=== PATIENT | female | born 1990 | race Caucasian/White ===

== ENCOUNTER → 2024-01-22 06:54 | Outpatient (REF) | payer BC, SELFPAY | LOC: PNTC 06:54 | PROVIDERS: ATTENDING PHYSICIAN Obstetrics & Gynecology | DX: E28.2 Polycystic ovarian syndrome (principal); O99.212 Obesity complicating pregnancy, second trimester; Z36.0 Encounter for antenatal screening for chromosomal anomalies; Z36.82 Encounter for antenatal screening for nuchal translucency; Z34.90 Encounter for supervision of normal pregnancy, unspecified, unspecified trimester | CPT/HCPCS: 36415; 76801; 76813 ==

== ENCOUNTER → 2024-02-20 14:10 | Outpatient (REF) | payer BC, SELFPAY | LOC: PNTC 14:10 | PROVIDERS: ATTENDING PHYSICIAN Obstetrics & Gynecology | DX: O99.212 Obesity complicating pregnancy, second trimester (principal); Z36.86 Encounter for antenatal screening for cervical length; O09.212 Supervision of pregnancy with history of pre-term labor, second trimester; E28.2 Polycystic ovarian syndrome; O42.913 Preterm premature rupture of membranes, unspecified as to length of time between rupture and onset of labor, third trimester | CPT/HCPCS: 76805; 76817 ==

== ENCOUNTER → 2024-03-12 13:20 | Outpatient (REF) | payer BC, SELFPAY | LOC: PNTC 13:20 | PROVIDERS: ATTENDING PHYSICIAN Obstetrics & Gynecology | DX: O09.519 Supervision of elderly primigravida, unspecified trimester (principal); O34.80 Maternal care for other abnormalities of pelvic organs, unspecified trimester; O99.210 Obesity complicating pregnancy, unspecified trimester | CPT/HCPCS: 76811; 76817 ==

== ENCOUNTER → 2024-03-26 14:55 | Outpatient (REF) | payer BC, SELFPAY | LOC: PNTC 14:55 | PROVIDERS: ATTENDING PHYSICIAN Obstetrics & Gynecology | DX: O44.03 Complete placenta previa NOS or without hemorrhage, third trimester (principal); O99.210 Obesity complicating pregnancy, unspecified trimester; O42.90 Premature rupture of membranes, unspecified as to length of time between rupture and onset of labor, unspecified weeks of gestation | CPT/HCPCS: 76815; 76817 ==

== ENCOUNTER → 2024-04-08 14:27 | Outpatient (REF) | payer BC, SELFPAY | LOC: PNTC 14:27 | PROVIDERS: ATTENDING PHYSICIAN Obstetrics & Gynecology | DX: O42.90 Premature rupture of membranes, unspecified as to length of time between rupture and onset of labor, unspecified weeks of gestation (principal); O44.03 Complete placenta previa NOS or without hemorrhage, third trimester; O99.210 Obesity complicating pregnancy, unspecified trimester | CPT/HCPCS: 76816; 76817 ==

== ENCOUNTER → 2024-04-24 16:37 | Outpatient (REF) | payer BC, SELFPAY ==
--- NOTE | 2024-04-24 16:48 | PN.DIAED06 ---
Meal Plan - Gestational
- Breakfast
Gestational Diabetes Meal Plan Name: 1800 calories
Breakfast - Total Carbohydrate (grams): 30
Breakfast - Starch Carbohydrate: 1
Breakfast - Fruit Carbohydrate: 0
Breakfast - Milk Carbohydrate: 1
Breakfast - Nonstarchy Vegetables: Yes
Breakfast - Meat/Protein: 1
Breakfast - Fat: 2
- Morning Snack
Morning Snack - Total Carbohydrate (grams): 30
Morning Snack - Starch Carbohydrate: 1
Morning Snack - Fruit Carbohydrate: 0
Morning Snack - Milk Carbohydrate: 1
Morning Snack - Nonstarchy Vegetables: Yes
Morning Snack - Meat/Protein: 0.5
Morning Snack - Fat: 0
- Lunch
Lunch - Total Carbohydrate (grams): 45
Lunch - Starch Carbohydrate: 2
Lunch - Fruit Carbohydrate: 1
Lunch - Milk Carbohydrate: 0
Lunch - Nonstarchy Vegetables: Yes
Lunch - Meat/Protein: 2
Lunch - Fat: 1
- Afternoon Snack
Afternoon Snack - Total Carbohydrate (grams): 30
Afternoon Snack - Starch Carbohydrate: 1
Afternoon Snack - Fruit Carbohydrate: 1
Afternoon Snack - Milk Carbohydrate: 0
Afternoon Snack - Nonstarchy Vegetables: Yes
Afternoon Snack - Meat/Protein: 1
Afternoon Snack - Fat: 0
- Dinner
Dinner - Total Carbohydrate (grams): 45
Dinner - Starch Carbohydrate: 2
Dinner - Fruit Carbohydrate: 0
Dinner - Milk Carbohydrate: 1
Dinner - Nonstarchy Vegetables: Yes
Dinner - Meat/Protein: 2
Dinner - Fat: 2
- Evening Snack
Evening Snack - Total Carbohydrate (grams): 30
Evening Snack - Starch Carbohydrate: 1
Evening Snack - Fruit Carbohydrate: 0
Evening Snack - Milk Carbohydrate: 1
Evening Snack - Nonstarchy Vegetables: Yes
Evening Snack - Meat/Protein: 1
Evening Snack - Fat: 1
--- NOTE | 2024-04-24 18:21 | PN.DE ---
Diabetes Education
- -
Met with Ms. Charlton today, , currently at 26 weeks of gestation, here today for medical nutrition therapy.
Explained glucose metabolism in body and what occurs during to cause increase blood sugar. Discussed importance of keeping BS well controlled to avoid complications to the baby during and after (macrosomia, hypoglycemia). Explained
to Emilie that she is at increased risk of developing T2DM in the future.
Provided Emilie with a Contour Next EZ glucometer, instructions with good return demonstration, result 90 mg/dl 2 hrs after lunch.
Reviewed proper testing technique, testing sites and testing pattern. She is aware to test FBS and 2 hr pp each meal. Expected results for FBS <95 mg/dl and 2 hr pp <120 mg/dl.
Explained high carbohydrate diet and macronutrients and the effect each has on blood sugar. Provided with 1800 maciej GDM meal plan. She was educated on how to read a nutritional fact label and look at total CHO in relation to serving size. No fruit or
fruit juice until noontime. Provided with handout on snacks as well as 'Choose Your Foods' booklet. A Log sheet was provided for her to record results, she will send her 4 day meal log with all her FBG and 2hr Post prandial glucose numbers to this
office for review. In addition, she will send all her glucose readings to [facility] at [facility] every Monday. She was encouraged to keep a regular activity schedule and will reach out should she require insulin
== END ==
LOC: DES 16:37
PROVIDERS: ATTENDING PHYSICIAN Obstetrics & Gynecology; FAMILY PHYSICIAN Family Medicine
DX: O24.419 Gestational diabetes mellitus in pregnancy, unspecified control (principal)
CPT/HCPCS: 99078

== ENCOUNTER → 2024-04-29 07:07 | Outpatient (REF) | payer BC, SELFPAY | LOC: PNTC 07:07 | PROVIDERS: ATTENDING PHYSICIAN Obstetrics & Gynecology | DX: O24.419 Gestational diabetes mellitus in pregnancy, unspecified control (principal) | CPT/HCPCS: 76815 ==

== ENCOUNTER → 2024-05-07 07:00 | Outpatient (REF) | payer BC, SELFPAY | LOC: PNTC 07:00 | PROVIDERS: ATTENDING PHYSICIAN Obstetrics & Gynecology | DX: O42.013 Preterm premature rupture of membranes, onset of labor within 24 hours of rupture, third trimester (principal); O24.410 Gestational diabetes mellitus in pregnancy, diet controlled; O99.213 Obesity complicating pregnancy, third trimester; Z87.51 Personal history of pre-term labor | CPT/HCPCS: 76816 ==

== ENCOUNTER 2024-05-08 16:50 | Observation (INO) | payer BC, SELFPAY ==
[2024-05-08 16:54] VITALS: BMI 41.6
[2024-05-08 16:56] VITALS: BP 124/75
== END 2024-05-08 17:35 | disposition home or self-care (01) ==
LOC: LDRP 16:50
PROVIDERS: ADMITTING PHYSICIAN Obstetrics & Gynecology; FAMILY PHYSICIAN Internal Medicine
DX: O36.8130 Decreased fetal movements, third trimester, not applicable or unspecified (principal); Z3A.28 28 weeks gestation of pregnancy; O24.410 Gestational diabetes mellitus in pregnancy, diet controlled; O99.283 Endocrine, nutritional and metabolic diseases complicating pregnancy, third trimester; E28.2 Polycystic ovarian syndrome; F90.9 Attention-deficit hyperactivity disorder, unspecified type; G43.909 Migraine, unspecified, not intractable, without status migrainosus; O99.213 Obesity complicating pregnancy, third trimester
CPT/HCPCS: 59025; G0378

== ENCOUNTER → 2024-06-04 06:56 | Outpatient (REF) | payer BC, SELFPAY | LOC: PNTC 06:56 | PROVIDERS: ATTENDING PHYSICIAN Obstetrics & Gynecology | DX: O24.414 Gestational diabetes mellitus in pregnancy, insulin controlled (principal); O99.213 Obesity complicating pregnancy, third trimester; E28.2 Polycystic ovarian syndrome; Z87.59 Personal history of other complications of pregnancy, childbirth and the puerperium; Z87.51 Personal history of pre-term labor | CPT/HCPCS: 59025; 76816 ==

== ENCOUNTER → 2024-06-10 06:59 | Outpatient (REF) | payer BC, SELFPAY | LOC: PNTC 06:59 | PROVIDERS: ATTENDING PHYSICIAN Obstetrics & Gynecology | DX: O24.414 Gestational diabetes mellitus in pregnancy, insulin controlled (principal); O99.213 Obesity complicating pregnancy, third trimester; E28.2 Polycystic ovarian syndrome; Z87.59 Personal history of other complications of pregnancy, childbirth and the puerperium; Z87.51 Personal history of pre-term labor | CPT/HCPCS: 59025; 76815 ==

== ENCOUNTER → 2024-06-17 16:41 | Outpatient (REF) | payer BC, SELFPAY | LOC: PNTC 16:41 | PROVIDERS: ATTENDING PHYSICIAN Obstetrics & Gynecology | DX: O42.90 Premature rupture of membranes, unspecified as to length of time between rupture and onset of labor, unspecified weeks of gestation (principal); O99.210 Obesity complicating pregnancy, unspecified trimester; O24.419 Gestational diabetes mellitus in pregnancy, unspecified control; O34.80 Maternal care for other abnormalities of pelvic organs, unspecified trimester | CPT/HCPCS: 59025; 76815 ==

== ENCOUNTER → 2024-06-24 16:38 | Outpatient (REF) | payer BC, SELFPAY | LOC: PNTC 16:38 | PROVIDERS: ATTENDING PHYSICIAN Obstetrics & Gynecology | DX: O42.90 Premature rupture of membranes, unspecified as to length of time between rupture and onset of labor, unspecified weeks of gestation (principal); O99.210 Obesity complicating pregnancy, unspecified trimester; O44.03 Complete placenta previa NOS or without hemorrhage, third trimester | CPT/HCPCS: 59025; 76815 ==

== ENCOUNTER 2024-06-28 18:42 | Observation (INO) | payer BC, SELFPAY ==
[2024-06-28 18:53] VITALS: BP 136/73; BMI 41.3
== END 2024-06-28 19:19 | disposition home or self-care (01) ==
LOC: LDRP 18:42
PROVIDERS: ADMITTING PHYSICIAN Obstetrics & Gynecology
DX: O36.8130 Decreased fetal movements, third trimester, not applicable or unspecified (principal); Z3A.36 36 weeks gestation of pregnancy; O24.410 Gestational diabetes mellitus in pregnancy, diet controlled; O99.283 Endocrine, nutritional and metabolic diseases complicating pregnancy, third trimester; E28.2 Polycystic ovarian syndrome; O99.213 Obesity complicating pregnancy, third trimester
CPT/HCPCS: 59025; G0378

== ENCOUNTER → 2024-07-01 16:46 | Outpatient (REF) | payer BC, SELFPAY | LOC: PNTC 16:46 | PROVIDERS: ATTENDING PHYSICIAN Obstetrics & Gynecology | DX: O42.90 Premature rupture of membranes, unspecified as to length of time between rupture and onset of labor, unspecified weeks of gestation (principal); O99.210 Obesity complicating pregnancy, unspecified trimester; O44.30 Partial placenta previa with hemorrhage, unspecified trimester | CPT/HCPCS: 36415; 59025 ==

== ENCOUNTER 2024-07-03 09:21 | Observation (INO) | payer BC, SELFPAY ==
[2024-07-03 09:37] VITALS: BP 135/78; BMI 41.3
[2024-07-03 09:59] LABS: Glucose - Point of Care 102 mg/dl (70-99)
[2024-07-03 10:24] LABS: Hematocrit 29.8 % (37.0-47.0); Hemoglobin 9.6 g/dL (12.0-16.0); Mean Corp Hgb Conc. 32.2 g/dL (33.0-37.0); Mean Corpuscular Hgb 26.2 pg (27.0-31.0); Mean Corpuscular Volume 81.2 fL (81.0-99.0); Mean Platelet Volume 9.5 fL (7.4-10.4); Platelet Count 224 10^3/uL (130-400); Red Blood Cell Count 3.67 10^6/uL (4.20-5.40); Red Cell Dist. Width 14.9 % (11.5-14.5); White Blood Cell Count 10.1 10^3/uL (4.8-10.8)
[2024-07-03 10:38] LABS: APTT 27.8 Sec (23.4-35.0); Fibrinogen 576 MG/DL (199-459); INR 0.99; PT 13.6 Sec (11.4-14.6)
== END 2024-07-03 13:05 | disposition home or self-care (01) ==
LOC: LDRP 09:21
PROVIDERS: Obstetrics & Gynecology; ADMITTING PHYSICIAN Obstetrics & Gynecology
DX: O36.8130 Decreased fetal movements, third trimester, not applicable or unspecified (principal); Z3A.36 36 weeks gestation of pregnancy; O99.013 Anemia complicating pregnancy, third trimester; D64.9 Anemia, unspecified; O46.93 Antepartum hemorrhage, unspecified, third trimester; O99.213 Obesity complicating pregnancy, third trimester; O99.283 Endocrine, nutritional and metabolic diseases complicating pregnancy, third trimester; E28.2 Polycystic ovarian syndrome; O24.410 Gestational diabetes mellitus in pregnancy, diet controlled; F90.9 Attention-deficit hyperactivity disorder, unspecified type
CPT/HCPCS: 82962; 85027; 85384; 85460; 85610; 85730; 86850; 86900; 86901; G0378

== ENCOUNTER → 2024-07-08 16:46 | Outpatient (REF) | payer BC, SELFPAY | LOC: PNTC 16:46 | PROVIDERS: ATTENDING PHYSICIAN Obstetrics & Gynecology | DX: O99.210 Obesity complicating pregnancy, unspecified trimester (principal); O44.00 Complete placenta previa NOS or without hemorrhage, unspecified trimester; O09.219 Supervision of pregnancy with history of pre-term labor, unspecified trimester | CPT/HCPCS: 59025; 76815 ==

== ENCOUNTER 2024-07-09 14:30 | Inpatient (IN) | payer BC, SELFPAY ==
[2024-07-09 14:47] VITALS: BP 129/73; BMI 41.6
[2024-07-09 15:38] LABS: Hematocrit 29.9 % (37.0-47.0); Hemoglobin 9.9 g/dL (12.0-16.0); Mean Corp Hgb Conc. 33.1 g/dL (33.0-37.0); Mean Corpuscular Volume 81.5 fL (81.0-99.0); Mean Platelet Volume 9.6 fL (7.4-10.4); Platelet Count 214 10^3/uL (130-400); Red Blood Cell Count 3.67 10^6/uL (4.20-5.40); Red Cell Dist. Width 15.5 % (11.5-14.5); White Blood Cell Count 10.4 10^3/uL (4.8-10.8)
[2024-07-09 15:55] LABS: ALT (SGPT) 12 U/L (0-35); AST (SGOT) 23 U/L (14-36); Albumin 3.6 g/dl (3.5-5.0); Alkaline Phosphatase 122 U/L (38-126); Blood Urea Nitrogen 11 mg/dl (7-17); Calcium 8.9 mg/dl (8.4-10.2); Carbon Dioxide 21 mmol/L (22-30); Chloride 104 mmol/L (98-107); Estimated Creatinine Clearance > 125 ml/min; Glucose 71 mg/dl (70-99); Sodium 139 mmol/L (135-145); Total Bilirubin 0.4 mg/dl (0.2-1.3); Total Protein 6.6 g/dl (6.3-8.2); eGFR > 60.00
[2024-07-09 15:56] LABS: Protein/creatinine Ratio 0.6; Urine Protein 13 mg/dl
[2024-07-09 19:35] LABS: Glucose - Point of Care 108 mg/dl (70-99)
[2024-07-09 20:20] LABS: % Basophils 0.2 % (0-2); % Eosinophils 0.2 % (0-6); % Immature Granulocytes 0.4 % (0-0.5); % Lymphocytes 15.7 % (20.5-51.1); % Monocytes 5.5 % (1.7-9.3); Absolute Lymphocytes 1.6 10^3/uL (1.2-3.4); Absolute Monocytes 0.6 10^3/uL (0.1-0.6); Absolute Neutrophils 8.1 10^3/uL (1.4-6.5); Nucleated Red Blood Cells % 0 %
[2024-07-09] MEDS: NOVOLIN N vial 0.06 UNITS SC (22:01)
[2024-07-09] MEDS: CYTOTEC 25 MICROGRAM VAG (22:10)
[2024-07-09] MEDS: CYTOTEC PO (23:51)
[2024-07-10 00:22] LABS: Glucose - Point of Care 119 mg/dl (70-99)
[2024-07-10] MEDS: CYTOTEC 50 MICROGRAM PO (02:00)
[2024-07-10] MEDS: STADOL 1 MG IV ×2 (02:30→04:42)
[2024-07-10 03:53] LABS: Glucose - Point of Care 76 mg/dl (70-99)
--- NOTE | 2024-07-10 04:00 | DOWNTIME ---
There was a [employer] Downtime on 07/10/2024 from 0100 to 07/10/2024 at 0350. Downtime documentation of patient's care, including medication administrations, has been reconciled in the electronic record per guidelines. Refer to the
patient's paper chart under the miscellaneous tab to see printed paper medication records and downtime forms.
[2024-07-10] MEDS: LR 1000 IV ×2 (04:42→07:05)
[2024-07-10] MEDS: FENTANYL/BUPIVACAINE 100 EPIDURAL (06:36)
[2024-07-10] MEDS: SUBLIMAZE 100 MCG EPIDURAL (06:36)
[2024-07-10] MEDS: MOTRIN 600 MG PO (19:33)
[2024-07-10] MEDS: TYLENOL 650 MG PO (23:35)
[2024-07-10] MEDS: SENOKOT-S 1 TABLET PO (23:35)
[2024-07-11] MEDS: MOTRIN 600 MG PO ×3 (05:00→20:05)
[2024-07-11 05:19] LABS: Hematocrit 30.9 % (37.0-47.0); Hemoglobin 10.3 g/dL (12.0-16.0); Mean Corp Hgb Conc. 33.3 g/dL (33.0-37.0); Mean Corpuscular Volume 81.1 fL (81.0-99.0); Mean Platelet Volume 9.6 fL (7.4-10.4); Platelet Count 215 10^3/uL (130-400); Red Blood Cell Count 3.81 10^6/uL (4.20-5.40); White Blood Cell Count 14.8 10^3/uL (4.8-10.8)
[2024-07-11] MEDS: FEOSOL 325 MG PO (07:30)
[2024-07-11] MEDS: PRENATAL PLUS 1 TABLET PO (07:30)
[2024-07-11] MEDS: ZYRTEC 10 MG PO (07:30)
[2024-07-12] MEDS: MOTRIN 600 MG PO (03:41)
[2024-07-12] MEDS: ZYRTEC 10 MG PO (08:14)
[2024-07-12] MEDS: FEOSOL 325 MG PO (08:14)
[2024-07-12] MEDS: PRENATAL PLUS 1 TABLET PO (08:14)
[2024-07-12 14:11] LABS: Syphilis/T. pallidum Ab Reflex Negative (Negative)
== END 2024-07-12 12:04 | disposition home or self-care (01) | DRG 807 ==
LOC: LDRP 14:30
PROVIDERS: Obstetrics & Gynecology; Student in an Organized Health Care Education/Training Program; ADMITTING PHYSICIAN Obstetrics & Gynecology
PROC: 3E0P7VZ Introduction of Hormone into Female Reproductive, Via Natural or Artificial Opening (ICD-10-PCS; 2024-07-09)
PROC: 0HQ9XZZ Repair Perineum Skin, External Approach (ICD-10-PCS; 2024-07-10)
PROC: 4A1HXCZ Monitoring of Products of Conception, Cardiac Rate, External Approach (ICD-10-PCS; 2024-07-10)
PROC: 10E0XZZ Delivery of Products of Conception, External Approach (ICD-10-PCS; 2024-07-10)
DX: O13.4 Gestational [pregnancy-induced] hypertension without significant proteinuria, complicating childbirth (principal); Z37.0 Single live birth; O70.0 First degree perineal laceration during delivery; Z3A.37 37 weeks gestation of pregnancy; O24.424 Gestational diabetes mellitus in childbirth, insulin controlled; O14.05 Mild to moderate pre-eclampsia, complicating the puerperium; O99.892 Other specified diseases and conditions complicating childbirth; O99.284 Endocrine, nutritional and metabolic diseases complicating childbirth; E28.2 Polycystic ovarian syndrome
CPT/HCPCS: 88307; 80053; 82570; 82962; 84156; 85025; 85027; 86780; 86850; 86900; 86901